=== PATIENT | male | born 1975 | race Hispanic/Latino ===

== ENCOUNTER 2024-04-17 21:53 | Emergency (ER) | payer OTHER ==
[2024-04-17] MEDS ORDERED: HYDROcodone/Acetaminophen 5/325 mg Tablet ONE (22:24)
[2024-04-17] MEDS ORDERED: Ketorolac Tromethamine 30 MG (1 mL) VIAL ONE (22:24)
== END 2024-04-17 23:48 | disposition home or self-care (01) ==
LOC: MADERS 21:53
DX: T63.2X1A Toxic effect of venom of scorpion, accidental (unintentional), initial encounter (principal); K21.9 Gastro-esophageal reflux disease without esophagitis; E78.00 Pure hypercholesterolemia, unspecified; I10 Essential (primary) hypertension; F17.210 Nicotine dependence, cigarettes, uncomplicated; Z79.899 Other long term (current) drug therapy
CPT/HCPCS: 96372; 99282; J1885

== ENCOUNTER 2025-01-12 15:49 | Emergency (ER) | payer OTHER ==
[2025-01-12] MEDS ORDERED: Lidocaine 1% (PF) 30 ML VIAL ONE (16:05)
[2025-01-12] MEDS ORDERED: Boostrix 0.5 ML (Tdap) VIAL (>/=7 yrs of age) ONE (16:05)
[2025-01-12] MEDS ORDERED: Amoxicillin/Potassium Clav 875 MG TAB ONE (16:31)
== END 2025-01-12 17:17 | disposition home or self-care (01) ==
LOC: MADERS 15:49
DX: S62.633A Displaced fracture of distal phalanx of left middle finger, initial encounter for closed fracture (principal); I10 Essential (primary) hypertension; K21.9 Gastro-esophageal reflux disease without esophagitis; F17.210 Nicotine dependence, cigarettes, uncomplicated; Z23 Encounter for immunization; Z79.899 Other long term (current) drug therapy; W27.0XXA Contact with workbench tool, initial encounter; Y93.89 Activity, other specified; Y92.009 Unspecified place in unspecified non-institutional (private) residence as the place of occurrence of the external cause
CPT/HCPCS: 90715